=== PATIENT | female | born 1965 | race Asian ===

== ENCOUNTER 2023-05-31 18:52 | Emergency (ER) | payer BC, OTHER ==
[2023-05-31 21:14] LABS: CORONAVIRUS COVID-19 NAA NEGATIVE (NEGATIVE); INFLUENZA A NAA NEGATIVE (NEGATIVE); INFLUENZA B NAA NEGATIVE (NEGATIVE)
[2023-05-31] MEDS ORDERED: Albuterol/Ipratropium 3.0-0.5 MG/3 ML Neb Soln NEB ONE (21:50)
[2023-05-31] MEDS ORDERED: predniSONE 20 MG Tab PO ONE (21:51)
== END 2023-05-31 23:29 | disposition home or self-care (01) ==
LOC: MW.ED 18:52
DX: J45.901 Unspecified asthma with (acute) exacerbation (principal); Z20.822 Contact with and (suspected) exposure to COVID-19
CPT/HCPCS: 0240U; 71045; 94640; 99285; A9270; 99283; J7620-GY